=== PATIENT | male | born 2000 | race African-American/Black ===

== ENCOUNTER 2019-04-22 08:15 | Day surgery (SDC) | payer MEDICAID ==
[~2019-04-22] VITALS: Ht 167.6 cm; Wt 219.5 kg
[~2019-04-22 08:15] MED LIST: AMLO10TA55 PO; ATOR10TA69 PO; SODIUM CHLORIDE 0.9% 1,000 ML IV ONE; SODIUM CHLORIDE 0.9% 1,000 ML ONE
[2019-04-22] MEDS ORDERED: LIDOCAINE/PF 2% 5 ML SYRINGE IVP ONE (08:16)
[2019-04-22] MEDS ORDERED: PROPOFOL 1% 20 ML VIAL IVP ONE (08:16)
[2019-04-22] MEDS ORDERED: INSNOV SQ (08:43)
[2019-04-22 09:15] LABS: GLUCOMETER DEV NAME(LOC) SDS.; GLUCOSE,POINT OF CARE 108 MG/DL (70-110)
[2019-04-22] MEDS ORDERED: OXYGEN THERAPY IH SCH (20:00)
== END 2019-04-22 12:00 | disposition home or self-care (01) ==
LOC: SURGERY 08:15
PROVIDERS: ATTEND Specialist
DX: K62.5 Hemorrhage of anus and rectum (principal); K62.89 Other specified diseases of anus and rectum; K64.9 Unspecified hemorrhoids; E78.00 Pure hypercholesterolemia, unspecified; I10 Essential (primary) hypertension; E11.9 Type 2 diabetes mellitus without complications; F17.290 Nicotine dependence, other tobacco product, uncomplicated; Z79.899 Other long term (current) drug therapy; Z82.5 Family history of asthma and other chronic lower respiratory diseases; Z82.49 Family history of ischemic heart disease and other diseases of the circulatory system; Z83.3 Family history of diabetes mellitus
CPT/HCPCS: 45378; 82962; J2704; J3490; J7030